=== PATIENT | female | born 1965 | race Caucasian/White ===

== ENCOUNTER → 2016-06-07 | Outpatient (CLI) | payer OTHER ==
[~2016-06-07] MED LIST: AGM500T PO; NF-FLON16G
[2016-06-07 13:11] VITALS: BP 103/72
--- NOTE | 2016-06-07 13:11 | Urgent Care T Sheet Gen (E) ---
Intake General Temperature (Fahrenheit): 98.7 Pulse: 85 Blood Pressure Systolic: 103 Blood Pressure Diastolic: 72 Respirations: 16 SPO2: 99 Description of Symptoms patient presents with 2 separate complaints. First, late last week, the patient noticed some pelvic pain which radiated around to her back. Thought it was the start to a UTI. Been drinking lots of water however the pain persisted. No dysuria. No meds. Is unsure if she has a history of endometriosis or ovarian cysts, has never seen an OB-[facility] T[facility]ER. Second, over the weekend, the patient developed a cough and resultant chest wall tenderness. Been exposed to URI's while at work. No meds to treat her symptoms. History of Present Illness Allergies: Coded Allergies: No Known Drug Allergies (Unverified , 03/08/12) Home Meds Active Scripts Amoxicillin/Clavulanate Potassium (Augmentin 500mg/125mg)1 Each Tablet1 Each PO BID Infection #20 TAB Ref 0 Prov:LAMBERTO LAKE 05/12/16 Reported Medications Fluticasone Propionate (Flonase 0.05% Nasal [place])16 Gm Spray16 Gm NA NEEDED 07/17/14 Respiratory Constitutional Symptoms: No syptoms reported EENTM: No symptoms reported Respiratory: CoughNo Short of breath, No Wheezing Genitourinary: No Dysuria, Pain All Other Systems Reviewed Remaining Systems: All other systems reviewed with negative findings Past Rdaiqxu-Hippvq-Ewyste Hx Surgeries/Hospitalizations Hospitalization/Surgery Hx: c sections. stereotactic br bx Respiratory Respiratory History: None Cardiovascular Cardiovascular History: None Neuro/Muscular Neuro/Muscular History: Visual impairment Genitouinary Genitourinary History: None Gastrointestinal GI/Endocrine History: Abdominal pain Diabetes Diabetes: No Integumentary Integumentary History: None Cancer History of Cancer?: No Physical Exam Physical Exam General Appearance: WD/WN No apparent distress Eyes, Ears, Nose, Throat Ex: TMs normal Pharynx normal Other (clear, thin nasal drainage without nasal swelling.) Neck Exam: SuppleNo Lymphadenopathy Respiratory Exam: Lungs clear Normal breath sounds Other (chest wall pain with palpation around the sternum. pain with anterior/posterior rib movement however no pain with lateral rib movement.) Cardiovascular Exam: Regular rate, rhythm GI/ Exam: Tenderness (bilateral ovaries, R worse than L, and over uterus.) Back Exam: No CVA tenderness Progress/Orders Lab Results Labs Results: UA UA Lab Results ph 6.0 Specific [place] 1.010 Protein - Ketones - Blood trace (patient just finished her period) Nitrates - Leukocyte Esterase - Departure Urgent Care Impression Impression: Primary Impression: Costochondritis Additional Impression: Pelvic pain Departure Disposition: 01 HOME OR SELF-CARE Condition: Stable Referrals: RENARD LOPEZ MD (PCP) Additional Instructions: Long discussion with patient regarding her symptoms. The patient wanted to make sure she didn't have a UTI given her pelvic discomfort. Her UA was clean, aside from the trace blood most likely associated with her period. She is tender over the uterus and ovaries. Most likely her pain is related to hormones/menstrual cycle. She was also concerned about her cough and chest wall pain. 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 Reassured her that her lungs were clear and her chest wall discomfort is due to costochondritis. I offered to prescribed a steroid however she declined. Suggested taking ibuprofen 800mg TID for several days. This should help with both the chest wall and pelvic pain. If her pelvic symptoms persist, she should either f/u with Dr Lopez or I can refer her to Dr Segovia. Patient recalls being told she had ovarian cysts in the past but she isn't certain. Patient understands DC instructions. All questions were answered. End of report . LAMBERTO LAKE Jun 07, 2016 13:11
== END ==
LOC: MHUC 12:12
PROVIDERS: ATTEND Physician Assistant
DX: M94.0 Chondrocostal junction syndrome [Tietze] (principal); R10.2 Pelvic and perineal pain
CPT/HCPCS: 81002; 99213